=== PATIENT | male | born 1960 | race Caucasian/White ===

== ENCOUNTER 2018-02-22 15:46 | Emergency (ER) | payer BC ==
[2018-02-22 16:00] VITALS: BP 147/103
[2018-02-22] MEDS ORDERED: Ketorolac INJ* 60 MG/2 ML VIAL IM ONE (16:12)
--- NOTE | 2018-02-22 16:31 | UC ---
Danyell Nieto Elizabeth, scribed for Puneet Hayes MD on 02/22/18 at 1615 . Dental HPI - HPI Summary HPI Summary: This patient is a 57 year old M presenting to [facility] with a chief complaint of dental pain in his top right molar since 1 day ago. The patient rates the pain 8 /10 in severity. Symptoms aggravated by nothing. Symptoms alleviated by nothing. Patient denies swelling, trismus, and airway compromise. - History of Current Complaint Chief Complaint: UCDentalProblem Stated Complaint: TOOTH ACHE Time Seen by Provider: 02/22/18 16:05 Hx Obtained From: Patient Onset/Duration: Gradual Onset, Still Present, Worse Since - this morning Severity: Moderate Pain Intensity: 8 Pain Scale Used: 0-10 Numeric Aggravating Factor(s): Nothing Alleviating Factor(s): Nothing - Allergies/Home Medications Allergies/Adverse Reactions: Allergies Allergy/AdvReac Type Severity Reaction Status Date / Time No Known Allergies Allergy Verified 12/15/14 10:14 Home Medications: Home Medications Blood Pressure Medication* 02/22/18 [History] Omeprazole CAP* [Prilosec CAP* 20 MG] 02/22/18 [History] PMH/Surg Hx/FS Hx/Imm Hx Endocrine History: Diabetes Cardiovascular History: Hypertension - Surgical History Surgical History: Yes Surgery Procedure, Year, and Place: tonsilectomy - Family History Known Family History: Positive: Hypertension, Diabetes - Social History Alcohol Use: Weekly Alcohol Amount: 1/2 bottle of wine on weekends Substance Use Type: None Smoking Status (MU): Former Smoker Have You Smoked in the Last Year: No When Did the Patient Quit Smoking/Using Tobacco: 1978 Review of Systems Constitutional: Negative - NEGATIVE FEVER ENT: Dental Pain Respiratory: Negative - NEGATIVE SHORTNESS OF BREATH Musculoskeletal: Negative - NEGATIVE EDEMA All Other Systems Reviewed And Are Negative: Yes Physical Exam - Summary Physical Exam Summary: VITAL SIGNS: Reviewed. GENERAL: Patient is a well-developed and nourished MALE who is lying comfortable in the stretcher. Patient is not in any acute respiratory distress. HEAD AND FACE: Normocephalic EYES: PERRLA, EOMI x 2. EARS: Hearing grossly intact. MOUTH: Oropharynx within normal limits. NECK: Supple, trachea is midline, no adenopathy, no JVD, no carotid bruit. CHEST: Symmetric, no tenderness at palpation LUNGS: Clear to auscultation bilaterally. No wheezing or crackles. CVS: Regular rate and rhythm, S1 and S2 present, no murmurs or gallops appreciated. ABDOMEN: Soft, non-tender. Bowel sounds are normal. No abdominal abnormal pulsations. EXTREMITIES: Full ROM in all major joints, no edema, no cyanosis or clubbing. NEURO: Alert and oriented x 3. No acute neurological deficits. Speech is normal and follows commands. SKIN: Dry and warm Triage Information Reviewed: Yes Vital Signs: Initial Vital Signs Temp 98.4 F 02/22/18 15:53 Pulse 83 02/22/18 15:53 Resp 18 02/22/18 15:53 BP 147/103 02/22/18 15:53 Pulse Ox 97 02/22/18 15:53 Vital Signs Reviewed: Yes Dental Complaint Course/Dx - Course Course Of Treatment: Patient is a 57-year-old male who presents to the chief complaint of dental pain. Pain is 8 of 10. There is no swelling of the face, there is no trismus, there is no swelling of the tongue or lips. There is no airway compromise. Patient was given Augmentin for the infection and he will follow with his dentist. I discussed all the findings and test results with the patient and Patient was instructed to return to the or go to the ED if develops any fever, increase sore throat unable to swallow, drooling, unable to open their mouth, or any other symptoms. The patient understands and agrees. Plan of care was discussed with the patient and understands and agrees. All questions were answered at patient satisfaction. There were no further complaints or concerns. Patient is A + O X 3. hemodynamically stable. - Differential Dx/Diagnosis Differential Diagnosis/Dx: Dental Caries, Shaquille's Angina Provider Diagnoses: dental pain Discharge - Sign-Out/Discharge Documenting (check all that apply): Discharge/Admit/Transfer - Discharge Plan Condition: Stable Disposition: HOME Prescriptions: Amoxicillin/Clavulanate TAB* [Augmentin TAB 875*] 875 mg PO BID #20 tab Patient Education Materials: Toothache (ED) Referrals: Shaggy Weeks MD [Primary Care Provider] - Additional Instructions: Take medications as instructed Increase your fluid intake Return to the if symptoms worsen - Billing Disposition and Condition Condition: STABLE Disposition: HOME The documentation as recorded by the scribe, Danyell,Kelly accurately reflects the service I personally performed and the decisions made by me, Puneet Hayes MD.
== END 2018-02-22 16:30 | disposition home or self-care (01) ==
LOC: UCEAST 15:46
DX: K08.89 Other specified disorders of teeth and supporting structures (principal); E11.9 Type 2 diabetes mellitus without complications; Z79.84 Long term (current) use of oral hypoglycemic drugs; I10 Essential (primary) hypertension; Z82.49 Family history of ischemic heart disease and other diseases of the circulatory system; Z83.3 Family history of diabetes mellitus; Z87.891 Personal history of nicotine dependence
CPT/HCPCS: 96372; 99212; G0463; J1885

== ENCOUNTER 2020-01-16 13:13 | Emergency (ER) | payer OTHER ==
--- OUTSIDE RECORDS SUMMARY | 2020-01-16 13:20 | XMS REPORT | Continuity of Care Document ---
:1960 External Reference #:[id number] Author Name Gilda Maldonado MD (transmitted by agent of provider Radha Brito) Address [address], [address] [place] [address] Care Team Providers Name Role Phone Shimon Beltran MD - Family Medicine Care Team Information License Clerk Problems Description No Information Available Social History Type Date Description Comments Sex Unknown ETOH Use Occasionally consumes wine Tobacco Use Start: Unknown End: Patient is a former Smoked 5 years as a Unknown smoker teenager Recreational Drug Use Denies Drug Use Smoking Status Reviewed: 12/10/19 Patient is a former Smoked 5 years as a smoker teenager Exercise Type/Frequency Exercises regularly Allergies, Adverse Reactions, Alerts Description No Known Drug Allergies Medications Active Medications SIG Qnty Indications Ordering Provider Date Metformin HCL ER (Mod) 1 by mouth twice Unknown a day 1000mg Tablets ER 24HR Lisinopril-Hydrochloro 1 by mouth every Unknown thiazide day 20-12.5mg Tablets Amlodipine Besylate 1 by mouth every Unknown 5mg day Tablets Omeprazole 1 by mouth every Unknown 20mg Capsules day DR Viagrjoann use as needed Unknown 100mg Tablets daily Immunizations Description No Information Available Vital Signs Date Vital Result Comment 12/10/2019 10:26am Height 68 inches 5'8" Weight 227.00 lb Heart Rate 70 /min BP Systolic Sitting 140 mmHg BP Diastolic Sitting 80 mmHg O2 % BldC Oximetry 96 % BMI (Body Mass Index) 34.5 kg/m2 Neck Circumference in inches 17.5 Results Description No Information Available Procedures Description No Information Available Medical Devices Description No Information Available Encounters Type Date Location Provider Dx Diagnosis Office Visit 12/10/2019 [facility] Maldonado, G47.33 Obstructive sleep 11:00a [facility] ([facility] (pediatric) E66.9 Obesity, unspecified Z68.37 Body mass index (BMI) 37.0-37.9, adult Assessments Date Code Description Provider 12/10/2019 G47.33 Obstructive sleep apnea (adult) (pediatric) Gilda Maldonado MD 12/10/2019 E66.9 Obesity, unspecified Gilda Maldonado MD 12/10/2019 Z68.37 Body mass index (BMI) 37.0-37.9, adult Gilda Maldonado MD Plan of Treatment Future Appointment(s):12/10/2020 10:45 am - Cara Corado DNP, RN, TOWEL [facility]EMMER-BC at [facility]12/10/2019 - Gilda Maldonado MDG47.33 Obstructive sleep apnea (adult) (pediatric)E66.9 Obesity, ecoqgrfgwgmY71.37 Body mass index (BMI) 37.0-37.9, adult Functional Status Description No Information Available Mental Status Description No Information Available Referrals Description No Information Available
--- OUTSIDE RECORDS SUMMARY | 2020-01-16 13:20 | XMS REPORT | Continuity of Care Document ---
:1960 External Reference #:[id number] Author Name Gilda Maldonado MD Address [address], [address] [place] [address] Care Team Providers Name Role Phone Shimon Beltran MD - Family Medicine Care Team Information Gallery Assistant [phone] Problems Description No Information Available Social History [...] mouth every Unknown 20mg Capsules day DR Viagra use as needed Unknown 100mg Tablets daily [...] sleep 11:00a [facility] (adult) [facility] (pediatric) Z68.37 Body mass index (BMI) 37.0-37.9, adult Assessments Date Code Description Provider 12/10/2019 G47.33 Obstructive sleep apnea (adult) (pediatric) Gilda Maldonado MD 12/10/2019 Z68.37 Body mass index (BMI) 37.0-37.9, adult Gilda Maldonado MD Plan of Treatment 12/10/2019 - Gilda Maldonado MDG47.33 Obstructive sleep apnea (adult) (pediatric )New Orders:[facility]Home[facility], Ordered: 12/10/19Z68.37 Body mass index (BMI) 37.0- 37.9, adult Functional Status Description No Information Available Mental Status Description No Information Available Referrals Description No Information Available
[2020-01-16 13:32] VITALS: BP 144/89
--- NOTE | 2020-01-16 14:21 | UC ---
Dental HPI - HPI Summary HPI Summary: Mr. Moore been having trouble with his teeth for quite a while. About a month ago he was seen at his dentist's and plans are made to pull four teeth . One of his premolars on the right mandible was at that time but not causing any pain. About 2 days ago it began to hurt him, he called the dentist and got an appt. for Sunday. - History of Current Complaint Chief Complaint: UCDentalProblem Stated Complaint: DENTAL PAIN Time Seen by Provider: 01/16/20 13:29 Hx Obtained From: Patient Onset/Duration: Gradual Onset, Lasting Days Severity: Severe Pain Intensity: 9 Aggravating Factor(s): Heat, Cold, Chewing - Allergies/Home Medications Allergies/Adverse Reactions: Allergies Allergy/AdvReac Type Severity Reaction Status Date / Time No Known Allergies Allergy Verified 01/16/20 13:18 Home Medications: Home Medications metFORMIN* [Glucophage 1000 MG TAB *] 1,000 mg PO BID 12/15/14 [History Confirmed 12/15/14] Omeprazole CAP (NF) [Prilosec CAP* 20 MG] 20 mg PO DAILY 02/22/18 [History] Ibuprofen TAB* [Motrin TAB* 600 MG] 600 mg PO Q6H PRN 01/16/20 [History Confirmed 01/16/20] Lisinopril TAB* [Prinivil TAB*] 5 mg PO DAILY 01/16/20 [History Confirmed ] amLODIPine TAB* [Norvasc 5 mg TAB*] 5 mg PO DAILY 01/16/20 [History Confirmed ] PMH/Surg Hx/FS Hx/Imm Hx Endocrine History: Diabetes, Dyslipidemia Cardiovascular History: Hypertension - Surgical History Surgical History: Yes Surgery Procedure, Year, and Place: tonsilectomy - Family History Known Family History: Positive: Hypertension, Diabetes - Social History Alcohol Use: Occasionally Alcohol Amount: 1/2 bottle of wine on weekends Substance Use Type: None Smoking Status (MU): Former Smoker Have You Smoked in the Last Year: No When Did the Patient Quit Smoking/Using Tobacco: 1978 Review of Systems All Other Systems Reviewed And Are Negative: Yes Constitutional: Positive: Negative Skin: Positive: Negative ENT: Positive: Dental Pain Respiratory: Positive: Negative Physical Exam - Summary Physical Exam Summary: He is nontoxic in appearance with stable vitals. Triage Information Reviewed: Yes Appearance: Well-Appearing Vital Signs: Initial Vital Signs Temp 98.2 F 01/16/20 13:32 Pulse 59 01/16/20 13:32 Resp 16 01/16/20 13:32 BP 144/89 01/16/20 13:32 Pulse Ox 98 01/16/20 13:32 Vital Signs Reviewed: Yes ENT Exam: Normal Dental Exam: Other Dental: Negative: Abscess @ - No sign of cellulitis or abscess Respiratory Exam: Normal Cardiovascular Exam: Normal Dental Complaint Course/Dx - Course Course Of Treatment: I am going to treat him with Pen Vee K and Babbitt to get him through the weekend to see his dentist. - Differential Dx/Diagnosis Provider Diagnosis: Tooth ache Discharge ED - Sign-Out/Discharge Documenting (check all that apply): Patient Departure All imaging exams completed and their final reports reviewed: No Studies - Discharge Plan Condition: Stable Disposition: HOME Patient Education Materials: Toothache (ED) Referrals: Shimon Beltran MD [Primary Care Provider] - - Billing Disposition and Condition Condition: STABLE Disposition: Home
== END 2020-01-16 14:45 | disposition home or self-care (01) ==
LOC: UCEAST 13:13
DX: K08.89 Other specified disorders of teeth and supporting structures (principal); E11.9 Type 2 diabetes mellitus without complications; E78.5 Hyperlipidemia, unspecified; Z79.84 Long term (current) use of oral hypoglycemic drugs; I10 Essential (primary) hypertension; Z79.899 Other long term (current) drug therapy; Z87.891 Personal history of nicotine dependence
CPT/HCPCS: 99212; G0463